=== PATIENT | male | born 1990 | race Caucasian/White ===

== ENCOUNTER 2019-02-21 11:03 | Emergency (ER) | payer SELFPAY ==
[~2019-02-21] VITALS: Ht 190.5 cm; Wt 108.9 kg
--- NOTE | 2019-02-21 11:15 | ED Lower Extremity ---
General Stated Complaint: LEFT FOOT PAIN Source: patient Exam Limitations: no limitations History of Present Illness Date Seen by Provider: Feb 21, 2019 Time Seen by Provider: 11:13 Initial Comments ER with reports of left foot pain. This began last night he was taking out the trash, stepped down off of the stairs and inverted the left ankle. He's been mercy ble to bear weight due to pain since then. Pain is over the lateral aspect of the foot and left ankle. Onset: yesterday Severity: moderate Pain/Injury Location: left ankle Method of Injury: fell, twisted Modifying Factors: Worse With Movement Allergies and Home Medications Allergies Coded Allergies: hydrocodone (Verified Allergy, Unknown, 02/21/19) meperidine (Verified Allergy, Unknown, 02/21/19) Home Medications Tramadol HCl 50 Mg Tablet, 50 MG PO Q6H PRN for PAIN-MILD Prescribed by: GABRIEL POWELL on 02/21/19 1218 Patient Home Medication List Home Medication List Reviewed: Yes Review of Systems Constitutional: see HPI EENTM: see HPI Respiratory: no symptoms reported Cardiovascular: no symptoms reported Genitourinary: no symptoms reported Musculoskeletal: see HPI Skin: no symptoms reported Psychiatric/Neurological: No Symptoms Reported Past [id number]-[id number] Hx Patient Social History Recent Foreign Travel: No Contact w/Someone Who Travel: No Physical Exam Vital Signs Vital Signs - First Documented 02/21/19 11:07 Temp 98.1 Pulse 95 Resp 18 B/P (MAP) 116/84 (95) Pulse Ox 96 O2 Delivery Room Air Capillary Refill : Height, Weight, BMI Height: '" Weight: lbs. oz. kg; BMI Method: General Appearance: WD/WN, no apparent distress Neck: non-tender, full range of motion Respiratory: no respiratory distress, no accessory muscle use Gastrointestinal: normal bowel sounds, non tender Hips: bilateral hip non-tender, bilateral hip normal inspection, bilateral hip normal range of motion Legs: bilateral leg non-tender, bilateral leg normal inspection, bilateral leg normal range of motion Knees: bilateral knee non-tender, bilateral knee normal inspection, bilateral knee normal range of motion Ankles: left ankle pain, left ankle soft tissue tenderness, left ankle other (no swelling ecchymosis or deformity) Feet: right foot non-tender; bilateral foot normal inspection, bilateral foot normal range of motion; left foot soft tissue tenderness Neurologic/Psychiatric: alert, normal mood/affect, oriented x 3 Skin: normal color, warm/dry Progress/Results/Core Measures Results/Orders My Orders Orders - GABRIEL POWELL APRN Ankle, Left, 3 Views (02/21/19 11:09) Foot, Left, 3 Views (02/21/19 11:09) Ct Extremity Lower Left Wo (02/21/19 11:43) Tramadol Tablet (Ultram Tablet) (02/21/19 12:30) Vital Signs/I&O 02/21/19 11:07 Temp 98.1 Pulse 95 Resp 18 B/P (MAP) 116/84 (95) Pulse Ox 96 O2 Delivery Room Air Departure Communication (Admissions) He has normal sensation of the toes, able to actively flex and extend the toes without pain. Patient was placed in a posterior short leg splint using 4 inch Ortho-Glass. Impression Primary Impression: Cuboid fracture Qualified Codes: S92.215A - Nondisplaced fracture of cuboid bone of left foot, initial encounter for closed fracture Disposition: HOME, SELF-CARE Condition: Stable Departure-Patient Inst. Decision time for Depature: 11:15 Referrals: NO,LOCAL PHYSICIAN (PCP/Family) Primary Care Physician Patient Instructions: Ankle Fracture (DC) Add. Discharge Instructions: 1. Keep the splint on at all times until you follow up with orthopedics 2. No weightbearing on the left foot until you follow up with orthopedics 3. Pain medication as directed Scripts Tramadol HCl (Ultram) 50 Mg Tablet 50 MG PO Q6H PRN for PAIN-MILD, #14 TAB Prov: GABRIEL POWELL APRN 02/21/19 Work/School Note: Work Release Form Date Seen in the Emergency Department: Feb 21, 2019 Return to Work: Feb 23, 2019 Other Restrictions Listed Below: Must use crutches, no weightbearing on left leg GABRIEL POWELL APRN Feb 21, 2019 11:15
--- NOTE | 2019-02-21 11:37 | Diagnostic Imaging Report ---
INDICATION: Stepped down off a ledge. Rolled ankle. Pain along the foot and ankle, worse laterally. EXAMINATION: Left ankle dated 02/21/2019 FINDINGS: Three views of the ankle. The ankle mortise and talar dome appear unremarkable. There is soft tissue swelling about the anterior and both medial and lateral aspects of the ankle. No displaced fractures appreciated. No dislocations. IMPRESSION: 1. Diffuse soft tissue swelling. No fractures identified but if pain persists, followup recommended. Dictated by: Dictated on workstation # [id number]
--- NOTE | 2019-02-21 11:39 | Diagnostic Imaging Report ---
INDICATION: Stepped off a ledge, rolled ankle, now has pain, injury yesterday EXAMINATION: Left foot dated 02/21/2019 FINDINGS: There is focal irregularity with vague lucency seen in the cuboid suspicious for a nondisplaced fracture line; correlate for point tenderness. Remaining osseous structures appear to be intact. Soft tissue swelling about the midfoot is noted. IMPRESSION: 1. Suspected nondisplaced cuboid fracture; correlate for point tenderness. If there is focal point tenderness, perhaps CT imaging could better evaluate and exclude other underlying fractures. Dictated by: Dictated on workstation # [id number]
[2019-02-21] MEDS ORDERED: ACHD5005 PO (12:08)
[2019-02-21] MEDS ORDERED: TRAM-42 PO (12:18)
[2019-02-21 12:40] VITALS: BP 115/84
--- NOTE | 2019-02-21 12:46 | Diagnostic Imaging Report ---
PROCEDURE: CT left lower extremity without contrast. TECHNIQUE: Multiple contiguous axial images were obtained through the left lower extremity without the use of intravenous contrast. Sagittal and coronal reformations were then performed. Auto Exposure Controls were utilized during the CT exam to meet ALARA standards for radiation dose reduction. INDICATION: Rolled ankle. Pain, injury occurred yesterday. EXAMINATION: CT of the left lower extremity 02/21/2019. COMPARISON: Correlation made to radiographs of the left foot and ankle from 02/21/2019. FINDINGS: A comminuted fracture of the cuboid is noted. Fracture lines extend both into the cubocalcaneal joint and distally adjacent to the metatarsals. The remaining visualized osseous structures demonstrate questionable nondisplaced lucency at the base of the fourth metatarsal, possibly nondisplaced fracture line. Remaining osseous structures are grossly intact but examination somewhat limited as true short axis imaging through the visualized foot is not obtained. If there is concern for fractures in the metatarsal regions or further within the foot, dedicated CT imaging of the foot itself could further evaluate. There is diffuse soft tissue swelling about the fracture site. IMPRESSION: 1. Markedly comminuted fracture of the cuboid. Linear nondisplaced fracture at the base of the fourth metatarsal difficult to exclude, see above description. 2. Diffuse soft tissue swelling. Dictated by: Dictated on workstation # [id number]
== END 2019-02-21 12:40 | disposition home or self-care (01) ==
LOC: EDUNIT# 11:03 → ER 11:05
DX: S92.215A Nondisplaced fracture of cuboid bone of left foot, initial encounter for closed fracture (principal); Z88.5 Allergy status to narcotic agent; W01.0XXA Fall on same level from slipping, tripping and stumbling without subsequent striking against object, initial encounter
CPT/HCPCS: 29515; 73610; 73630; 73700